=== PATIENT | female | born 1995 | race Caucasian/White ===

== ENCOUNTER 2017-08-03 17:36 | Emergency (ER) | payer MEDICAID ==
--- NOTE | 2017-08-03 18:36 | ER Document Report ---
ED Extremity Problem, Lower - General Mode of Arrival: Ambulatory Information source: Patient TRAVEL OUTSIDE OF THE [place] 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 Patient states she had similar symptoms with her first born and was told she was borderline pre-eclampsic therefore she thought she should come to the emergency department. Patient also mentions having frequent UTIs with her first due to kidney reflex disease. Patient denies any new nausea or abdominal pain. Patient is . Patient reports taking Zantac and 1 baby aspirin daily. Patient mentions having a job where she is standing most of the day. (JANELL ARAUZ) - Related Data Allergies/Adverse Reactions: acetaminophen [From Tylenol] Allergy (Verified 08/03/17 17:38) red dye Allergy (Verified 08/03/17 17:38) Past Medical History - General Information source: Patient - Social History Smoking Status: Current Every Day Smoker Chew tobacco use (# tins/day): No Frequency of alcohol use: None Drug Abuse: None Family History: Reviewed & Not Pertinent Patient has suicidal ideation: No Patient has homicidal ideation: No - Past Medical History Cardiac Medical History: Reports: Hx Hypertension - preeclampsia Past Surgical History: Reports: Hx Cholecystectomy, Hx Kidney (Renal Surgery) - spurs removed, Hx Tonsillectomy <JANELL ARAUZ - Last Filed: 08/04/17 03:42> Review of Systems - Review of Systems Constitutional: See HPI, Chills, Diaphoresis EENT: No symptoms reported Cardiovascular: No symptoms reported Respiratory: No symptoms reported Gastrointestinal: No symptoms reported Genitourinary: See HPI, Burning, Frequency Female Genitourinary: No symptoms reported Musculoskeletal: See HPI, Back pain, Leg swelling Skin: No symptoms reported Hematologic/Lymphatic: No symptoms reported Neurological/Psychological: No symptoms reported -: Yes All other systems reviewed and negative <JANELL ARAUZ - Last Filed: 08/04/17 03:42> Physical Exam <JANELL ARAUZ - Last Filed: 08/04/17 03:42> <GUNNER PRASAD - Last Filed: 08/04/17 03:43> - Vital signs Vitals: Temp Pulse Resp BP Pulse Ox 99.5 F 98 18 124/71 99 08/03/17 17:53 08/03/17 17:53 08/03/17 17:53 08/03/17 17:53 08/03/17 17:53 - Notes Notes: GENERAL: Alert, interacts well. No acute distress. HEAD: Normocephalic, atraumatic. EYES: Pupils equal, round, and reactive to light. Extraocular movements intact. ENT: Oral mucosa moist, tongue midline. NECK: Full range of motion. Supple. Trachea midline. LUNGS: Clear to auscultation bilaterally, no wheezes, rales, or rhonchi. No respiratory distress. HEART: Regular rate and rhythm. No murmurs, gallops, or rubs. ABDOMEN: Soft, non-tender. Gravid, consistent with dates. Bowel sounds present in all 4 quadrants. EXTREMITIES: Moves all 4 extremities spontaneously. 1+ pitting edema bilaterally , equal swelling, radial and dorsalis pedis pulses 2/4 bilaterally. No cyanosis. NEUROLOGICAL: Alert and oriented x3. Normal speech. Biceps and patellar reflexes slowly diminished, 1+ bilaterally. PSYCH: Normal affect, normal mood. SKIN: Warm, dry, normal turgor. No rashes or lesions noted. BACK: No CVA tenderness to percussion. Right SI joint and right PSIS joint tender to palpation. (REGLAMACRINAFAHAD) Course - Laboratory Result Diagrams: 08/03/17 19:15 08/03/17 18:50 <JANELL ARAUZ - Last Filed: 08/04/17 03:42> - Laboratory Result Diagrams: 08/03/17 19:15 08/03/17 18:50 <GUNNER PRASAD - Last Filed: 08/04/17 03:43> - Re-evaluation Re-evalutation: 08/03/17 21:00 CBC shows leukocytosis white count of 11.4, mild anemia consistent with of 11.7, chemistries do not show any elevation in LFTs, no suspicion for preeclampsia at this time, again no protein in the urine points away from preeclampsia as does a normal blood pressure and slightly decreased patellar and biceps deep tendon reflexes, urinalysis shows small blood on dipstick but only 1 WBC and 1 RBC. No evidence of urinary tract infection. Discussed with patient that the leg swelling is likely physiologic related to , there is no asymmetry, no suspicion for DVT. Encouraged patient to walk, use compression stockings, elevate her legs when possible and to quit smoking to decrease the risk of a DVT. Back pain with tenderness along the PSIS and the SI joint on the right is consistent with sacroiliitis from , no evidence of infection at this time. Instructed patient on stretches. (GUNNER PRASAD) - Vital Signs Vital signs: Temp Pulse Resp BP Pulse Ox 99.1 F 95 19 120/79 100 08/03/17 21:07 08/03/17 21:07 08/03/17 21:07 08/03/17 21:07 08/03/17 21:07 - Laboratory Laboratory results interpreted by me: 08/03/17 08/03/17 08/03/17 18:34 18:50 19:15 WBC 11.4 H RBC 3.59 L Hgb 11.7 L Hct 33.2 L Chloride 109 H Carbon Dioxide 21 L Creatinine 0.43 L Total Protein 6.2 L Urine Blood SMALL H Discharge <JANELL ARAUZ - Last Filed: 08/04/17 03:42> <GUNNER PRASAD - Last Filed: 08/04/17 03:43> - Discharge Clinical Impression: Edema during in second trimester, Second trimester , Sacroiliitis Condition: Stable Disposition: HOME, SELF-CARE Additional Instructions: Please wear compression stockings, walk to help mobilize the fluid, drink plenty of water, put your feet up when possible. Use the stretches that I showed you to help relieve some of the pain in your back. If you should develop pain radiating down your legs, headaches or asymmetric swelling please return to the emergency department. Referrals: [facility] STARKS MD [ACTIVE STAFF] - Follow up as needed Scribe Attestation: 08/04/17 03:43 I personally performed the services described in the documentation, reviewed and edited the documentation which was dictated to the scribe in my presence, and it accurately records my words and actions. (GUNNER PRASAD) Scribe Documentation - Scribe Written by Rebeca:: Rebeca Xavier, 08/03/2017 18:48 acting as scribe for :: Sanchez <JANELL ARAUZ - Last Filed: 08/04/17 03:42>
[2017-08-03 19:19] LABS: APPEARANCE,URINE CLEAR; BILIRUBIN,URINE NEGATIVE (NEGATIVE); COLOR,URINE STRAW; GLUCOSE, URINE NEGATIVE (NEGATIVE); KETONES,URINE NEGATIVE (NEGATIVE); LEUKOCYTE ESTERASE,URINE NEGATIVE (NEGATIVE); NITRITE,URINE NEGATIVE (NEGATIVE); PROTEIN,URINE NEGATIVE (NEGATIVE); URINE SPECIFIC GRAVITY 1.006; UROBILINOGEN,URINE NEGATIVE mg/dL (<2.0)
[2017-08-03 19:27] LABS: ALANINE AMINOTRANSFERASE 44 U/L (9-52); ALBUMIN 3.6 g/dL (3.5-5.0); ALKALINE PHOSPHATASE 70 U/L (38-126); ANION GAP 9 (5-19); ASPARTATE AMINO TRANSFERASE 27 U/L (14-36); BILIRUBIN,DIRECT 0.2 mg/dL (0.0-0.4); BILIRUBIN,TOTAL 0.3 mg/dL (0.2-1.3); BLOOD UREA NITROGEN 10 mg/dL (7-20); CALCIUM 9.7 mg/dL (8.4-10.2); CARBON DIOXIDE 21 mmol/L (22-30); CHLORIDE 109 mmol/L (98-107); GLUCOSE 88 mg/dL (75-110); POTASSIUM 4.1 mmol/L (3.6-5.0); SODIUM 139.3 mmol/L (137-145); TOTAL PROTEIN 6.2 g/dL (6.3-8.2)
[2017-08-03 19:36] LABS: ABSOLUTE EOSINOPHILS # (AUTO) 0.1 10^3/uL (0.0-0.6); ABSOLUTE LYMPHOCYTES (AUTO) 2.8 10^3/uL (0.5-4.7); ABSOLUTE MONOCYTES (AUTO) 0.8 10^3/uL (0.1-1.4); ABSOLUTE NEUT (AUTO) 7.6 10^3/uL (1.7-8.2); BASOPHILS % (AUTO) 0.3 % (0-2); EOSINOPHILS % (AUTO) 1.1 % (0-6); HEMATOCRIT 33.2 % (36.0-47.0); HEMOGLOBIN 11.7 g/dL (12.0-15.5); LYMPHOCYTES % (AUTO) 24.4 % (13-45); MEAN CORPUSCULAR HEMOGLOBIN 32.7 pg (27.0-33.4); MEAN CORPUSCULAR HGB CONC 35.3 g/dL (32.0-36.0); MEAN CORPUSCULAR VOLUME 93 fl (80-97); MONOCYTES % (AUTO) 7.1 % (3-13); PLATELET COUNT 241 10^3/uL (150-450); RED BLOOD COUNT 3.59 10^6/uL (3.72-5.28); RED CELL DISTRIBUTION WIDTH 13.1 % (11.5-14.0); SEGMENTED NEUTROPHILS % (AUTO) 67.1 % (42-78); TOTAL CELLS COUNTED % (AUTO) 100 %; WHITE BLOOD COUNT 11.4 10^3/uL (4.0-10.5)
[2017-08-03 21:08] VITALS: BP 120/79
== END 2017-08-03 21:09 | disposition home or self-care (01) ==
LOC: ER 17:36
DX: O12.02 Gestational edema, second trimester (principal); M46.1 Sacroiliitis, not elsewhere classified; R61 Generalized hyperhidrosis; O99.332 Smoking (tobacco) complicating pregnancy, second trimester; Z3A.22 22 weeks gestation of pregnancy; Z90.49 Acquired absence of other specified parts of digestive tract; Z79.82 Long term (current) use of aspirin
CPT/HCPCS: 36415; 80053; 81001; 85025; 99283

== ENCOUNTER 2017-09-28 19:50 | Outpatient (CLI) | payer MEDICAID ==
[2017-09-28 20:35] LABS: APPEARANCE,URINE SLIGHTLY-CLOUDY; BILIRUBIN,URINE NEGATIVE (NEGATIVE); COLOR,URINE YELLOW; GLUCOSE, URINE NEGATIVE (NEGATIVE); KETONES,URINE NEGATIVE (NEGATIVE); LEUKOCYTE ESTERASE,URINE TRACE (NEGATIVE); NITRITE,URINE NEGATIVE (NEGATIVE); PROTEIN,URINE NEGATIVE (NEGATIVE); URINE SPECIFIC GRAVITY 1.019
[2017-09-28 20:54] LABS: URINE AMPHETAMINES SCREEN NEGATIVE; URINE BARBITURATES SCREEN NEGATIVE; URINE BENZODIAZEPINES SCREEN NEGATIVE; URINE COCAINE SCREEN NEGATIVE; URINE MARIJUANA (THC) SCREEN NEGATIVE; URINE METHADONE SCREEN NEGATIVE; URINE PHENCYCLIDINE SCREEN NEGATIVE
== END 2017-09-28 21:21 | disposition home or self-care (01) ==
LOC: LC 19:50
PROVIDERS: ATTEND Student in an Organized Health Care Education/Training Program
PROC: 4A1HXCZ Monitoring of Products of Conception, Cardiac Rate, External Approach (ICD-10-PCS; principal; 2017-09-28)
DX: O26.893 Other specified pregnancy related conditions, third trimester (principal); R10.2 Pelvic and perineal pain; Z3A.31 31 weeks gestation of pregnancy
CPT/HCPCS: 80307; 81001

== ENCOUNTER 2017-10-21 12:36 | Emergency (ER) | payer MEDICAID ==
[2017-10-21 12:59] VITALS: BP 125/76
[2017-10-21] MEDS ORDERED: LIDOCAINE 1% INJ-PF (10 MG/ML) 30 ML SDV INJ ONE (13:10)
[2017-10-21] MEDS ORDERED: CLINDAMYCIN HCL 150 MG CAPSULE PO ONE (13:11)
--- NOTE | 2017-10-21 13:20 | ER Document Report ---
ED Skin Rash/Insect Bite/Abscs - General Chief Complaint: Skin Problem Stated Complaint: RASH Time Seen by Provider: 10/21/17 12:56 Mode of Arrival: Ambulatory Information source: Patient Notes: 22-year-old female presented to ED for complaint of a large abscess to the left upper thigh. She is 35 weeks . TRAVEL OUTSIDE OF THE [place] IN LAST 30 DAYS: No - HPI Patient complains to provider of: Tender/swollen area Onset/Duration: Gradual, Worse Quality of pain: Throbbing Severity: Moderate Pain Level: 3 Skin Character: Abscess Quality of rash: Painful Identify cause: No Exacerbated by: Denies Relieved by: Denies Similar symptoms previously: Yes Recently seen / treated by doctor: Yes - Related Data Allergies/Adverse Reactions: acetaminophen [From Tylenol] Allergy (Verified 09/28/17 20:47) red dye Allergy (Verified 09/28/17 20:47) Past Medical History - General Information source: Patient - Social History Smoking Status: Current Every Day Smoker Cigarette use (# per day): Yes - 4-5 Chew tobacco use (# tins/day): No Smoking Education Provided: Yes - 4 min Frequency of alcohol use: None Drug Abuse: None Lives with: Family Family History: Reviewed & Not Pertinent Patient has suicidal ideation: No Patient has homicidal ideation: No - Past Medical History Cardiac Medical History: Reports: Hx Hypertension - preeclampsia Pulmonary Medical History: Reports: None EENT Medical History: Reports: None Neurological Medical History: Reports: None Endocrine Medical History: Reports: None Renal/ Medical History: Reports: Other - Kidney disease Malignancy Medical History: Reports: None GI Medical History: Reports: Hx Hepatitis Musculoskeletal Medical History: Reports None Skin Medical History: Reports None Psychiatric Medical History: Reports: None Traumatic Medical History: Reports: None Infectious Medical History: Reports: Hx Hepatitis Past Surgical History: Reports: Hx Adenoidectomy, Hx Cholecystectomy, Hx Kidney (Renal Surgery) - spurs removed, Hx Oral Surgery - wisdom teeth, Hx Tonsillectomy - Immunizations Immunizations up to date: Yes Review of Systems - Review of Systems Constitutional: No symptoms reported EENT: No symptoms reported Cardiovascular: No symptoms reported Respiratory: No symptoms reported Gastrointestinal: No symptoms reported Genitourinary: No symptoms reported Female Genitourinary: Musculoskeletal: No symptoms reported Skin: Other - abscess left thigh Hematologic/Lymphatic: No symptoms reported Neurological/Psychological: No symptoms reported -: Yes All other systems reviewed and negative Physical Exam - Vital signs Vitals: Temp Pulse Resp BP Pulse Ox 97.8 F 111 H 16 125/76 98 10/21/17 12:57 10/21/17 12:57 10/21/17 12:57 10/21/17 12:57 10/21/17 12:57 Interpretation: Normal - General General appearance: Appears well, Alert - HEENT Head: Normocephalic, Atraumatic Eyes: Normal Pupils: PERRL - Respiratory Respiratory status: No respiratory distress Chest status: Nontender Breath sounds: Normal Chest palpation: Normal - Cardiovascular Rhythm: Regular Heart sounds: Normal auscultation Murmur: No - Abdominal Inspection: Normal Distension: No distension Bowel sounds: Normal Tenderness: Nontender Organomegaly: No organomegaly - Back Back: Normal, Nontender - Extremities General upper extremity: Normal inspection, Nontender, Normal color, Normal ROM , Normal temperature General lower extremity: Normal inspection, Nontender, Normal color, Normal ROM , Normal temperature, Normal weight bearing. No: Ashley's sign - Neurological Neuro grossly intact: Yes Cognition: Normal Orientation: AAOx4 [place] Coma Scale Eye Opening: Spontaneous [place] Coma Scale Verbal: Oriented [place] Coma Scale Motor: Obeys Commands [place] Coma Scale Total: 15 Speech: Normal Motor strength normal: LUE, RUE, LLE, RLE Sensory: Normal - Psychological Associated symptoms: Normal affect, Normal mood - Skin Skin Temperature: Warm Skin Moisture: Dry Skin Color: Normal Skin irregularity: Abscess Location of irregularity: Other - left thigh Irregularity with: Swelling, Tenderness, Warmth Course - Re-evaluation Re-evalutation: 10/21/17 14:15 Spoke with [facility] christianson before doing I&D due to the patient being 35 weeks . She stated to go ahead and do the I&D and place patient on clindamycin. Patient was treated with clindamycin, her abscess I&D and packed with iodoform, and she was discharged home with instructions to follow-up with the [employer] [employer] on Monday. - Vital Signs Vital signs: Temp Pulse Resp BP Pulse Ox 97.8 F 111 H 16 125/76 98 10/21/17 12:57 10/21/17 12:57 10/21/17 12:57 10/21/17 12:57 10/21/17 12:57 Procedures - Incision and Drainage Left Groin Time completed: 14:06 Type: Simple Anesthetic type: 1% Lidocaine mL's of anesthetic: 6 Blade size: 11 I&D procedure: Other - surgical scrub Incision Method: Incision made by scalpel Amount/type of drainage: purulent large amount drainage Discharge - Discharge Clinical Impression: Abscess of left groin Condition: Stable Disposition: HOME, SELF-CARE Additional Instructions: ABSCESS: You have an abscess (boil). This a pus-forming infection, usually due to staph. Some boils may be left to drain on their own, but most require lancing. From the time the tender lump first appears, it may be three or four days before the abscess is ready to jason. Local heat and rest help at this stage of treatment. An antibiotic may prevent spread of the infection. Once the abscess is opened, packing may be placed into it. This is done so pus is not sealed inside by premature closure of the cavity. The packing will be removed at your follow-up visit or you may be advised to remove it yourself at home. Sometimes this packing must be replaced a few times during healing. The wound will heal with surprisingly little scar. Depending on the size and location of an abscess, healing can take one to four weeks. You may shower and wash the area around the incision site two or three times a day. Antibiotics may be prescribed, but are usually not necessary after an abscess has been drained. If you develop fever, chills, worsening pain, or increasing swelling in the area, call the doctor or return immediately. POST INCISION AND DRAINAGE: You have had an incision made to allow drainage of an abscess. The incision must remain open so that pus and debris can drain from the wound. If the abscess cavity is large, packing is placed. This keeps the tissues from collapsing and trapping pus inside, while the body shrinks the cavity. The packing may need to be replaced every day or two. The physician will instruct you on the packing. Keep a bulky dressing over the area. Replace it if it becomes saturated with blood or pus. Do not disturb the packing (if present). You may shower and cleanse the area with gentle soap and warm water two or three times a day. Local warmth may be soothing, and may promote faster healing. Return if you develop high fever or chills, or if you note spreading redness, increasing swelling, or increasing tenderness. MRSA CELLULITIS: You have an infection of your skin and underlying soft tissues called cellulitis. This is due to bacteria, which can enter through any break in the skin, or even through an irritated hair follicle. Untreated, cellulitis will usually worsen and may form an abscess which requires draining. Although many bacterial organisms can cause cellulitis and abscess formations, the most likely bacteria is Methicillin-Resistant Staph Aureus, or MRSA for short. Antibiotics are required. Usually, warm packs or warm soaks, and elevation of the infected area are recommended. You should start getting better within 24 to 36 hours. Most infections respond quickly to the right medication. Follow-up care is important, however, to check for abscess (boil) formation, unsuspected foreign body, or resistant infection. If you develop fever, chills, or if the area of infection is becoming rapidly more swollen or painful, call the doctor at once. Clindamycin You have been given a prescription for the antibiotic clindamycin. It is often prescribed for infections in the mouth, such as dental infections or abscesses, and for skin infections due to MRSA. It's important that you take all the medication, unless instructed otherwise by your physician. Failure to complete the entire course can result in relapse of your condition. Common side effects of antibiotics include nausea, intestinal cramping, or diarrhea. Women may develop vaginal yeast infections, and babies can get yeast (thrush) in the mouth following the use of antibiotics. Contact your physician if you develop significant side effects from this medication. Allergy to this antibiotic can result in hives, wheezing, faintness, or itching. If symptoms of allergy occur, stop the medication and call the doctor. FOLLOW-UP CARE: Most simple abscesses will not require a follow up visit. If you had packing placed in the abscess, remove it as instructed by the physician. If you have been referred to a physician for follow-up care, call the physicians office for an appointment as you were instructed or within the next two days. If you experience worsening or a significant change in your symptoms, return to the Emergency Department at any time for re-evaluation. Prescriptions: Clindamycin HCl 300 mg PO Q6 #28 capsule Forms: Smoking Cessation Education, Return to Work Referrals: [facility] [Provider Group] - Follow up as needed
== END 2017-10-21 14:22 | disposition home or self-care (01) ==
LOC: ER 12:36
PROC: 0H9JXZZ Drainage of Left Upper Leg Skin, External Approach (ICD-10-PCS; principal; 2017-10-21)
DX: O99.333 Smoking (tobacco) complicating pregnancy, third trimester (principal); O26.893 Other specified pregnancy related conditions, third trimester; L02.416 Cutaneous abscess of left lower limb; R21 Rash and other nonspecific skin eruption; Z3A.35 35 weeks gestation of pregnancy; I10 Essential (primary) hypertension
CPT/HCPCS: 99406; 99283; 87070; 87205; 87075; 87077; 87186; 10060; A6266; J3490 ×2

== ENCOUNTER 2017-12-04 07:48 | Inpatient (IN) | payer MEDICAID ==
[2017-12-04] MEDS ORDERED: RINGERS SOLUTION,LACTATED 1,000 ML IV PRN (08:39)
[2017-12-04] MEDS ORDERED: OXYTOCIN/NORMAL SALINE 20 UNIT/1,000 ML RTUINJ IV PRN (08:43)
[2017-12-04] MEDS ORDERED: LIDOCAINE 1% INJ-PF (10 MG/ML) 30 ML SDV ONE (09:07)
[2017-12-04] MEDS ORDERED: MISOPROSTOL 0.2 MG TABLET ONE (09:07)
[2017-12-04] MEDS ORDERED: OXYTOCIN/NORMAL SALINE 20 UNIT/1,000 ML RTUINJ ONE (09:07)
[2017-12-04 09:28] LABS: APPEARANCE,URINE CLOUDY; BILIRUBIN,URINE NEGATIVE (NEGATIVE); COLOR,URINE YELLOW; GLUCOSE, URINE NEGATIVE (NEGATIVE); KETONES,URINE NEGATIVE (NEGATIVE); LEUKOCYTE ESTERASE,URINE MODERATE (NEGATIVE); NITRITE,URINE NEGATIVE (NEGATIVE); PROTEIN,URINE NEGATIVE (NEGATIVE); URINE SPECIFIC GRAVITY 1.019; UROBILINOGEN,URINE NEGATIVE mg/dL (<2.0)
[2017-12-04 09:44] LABS: URINE AMPHETAMINES SCREEN NEGATIVE; URINE BARBITURATES SCREEN NEGATIVE; URINE BENZODIAZEPINES SCREEN NEGATIVE; URINE COCAINE SCREEN NEGATIVE; URINE MARIJUANA (THC) SCREEN NEGATIVE; URINE METHADONE SCREEN NEGATIVE; URINE PHENCYCLIDINE SCREEN NEGATIVE
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
[2017-12-04 10:21] LABS: ABSOLUTE EOSINOPHILS # (AUTO) 0.1 10^3/uL (0.0-0.6); ABSOLUTE LYMPHOCYTES (AUTO) 1.9 10^3/uL (0.5-4.7); ABSOLUTE MONOCYTES (AUTO) 0.7 10^3/uL (0.1-1.4); ABSOLUTE NEUT (AUTO) 8.3 10^3/uL (1.7-8.2); BASOPHILS % (AUTO) 0.4 % (0-2); EOSINOPHILS % (AUTO) 0.9 % (0-6); HEMATOCRIT 36.7 % (36.0-47.0); LYMPHOCYTES % (AUTO) 17.3 % (13-45); MEAN CORPUSCULAR HEMOGLOBIN 32.9 pg (27.0-33.4); MEAN CORPUSCULAR HGB CONC 35.4 g/dL (32.0-36.0); MEAN CORPUSCULAR VOLUME 93 fl (80-97); MONOCYTES % (AUTO) 6.3 % (3-13); PLATELET COUNT 231 10^3/uL (150-450); RED BLOOD COUNT 3.94 10^6/uL (3.72-5.28); RED CELL DISTRIBUTION WIDTH 13.9 % (11.5-14.0); SEGMENTED NEUTROPHILS % (AUTO) 75.1 % (42-78); TOTAL CELLS COUNTED % (AUTO) 100 %
--- NOTE | 2017-12-04 15:43 | L&D Progress Notes ---
PROGRESS NOTES Datetime Report Generated by [facility]: 12/04/2017 15:43 PROGRESS NOTE Impression Other: IUP @ [id number] Procedures: Sterile Vag Exam Plan: Continue Present Management Informed Consent Obtained: Vaginal Delivery; Induction of Labor; Risks, Benefits and Alternatives Discussed Vital Signs : Reviewed; Within Normal Limits Comment: S: feeling pressure and mild cramping with contractions O:VSS, cervix as stated, BBOW, pit @ 20mu/min A: IUP @ 41w IOL for post term-stable progressing P: continue IOL, reasses as clinically indicated, earlier prn VAGINAL EXAM Dilatation: 4 Effacement: 80 Station: -2 Contractions: 2-4 Contractions: rare MEMBRANES Membranes: Intact Membranes: Intact FETUS A FHR - Baseline: 120 Monitoring: External US Variability: Moderate 6-25bpm Accelerations: 15X15 Decelerations: None FHR Category: Category I FHR Comments: cat II tracing prior to exam with + scalp stimulation Estimated Weight (gm): 3309 Presentation: Vertex SIGNATURE SIGNATURE: [id number] SIGNATURE: [id number] Assignment: Venus Isaacs MD Signature: with User ID: Reny : with User ID: [email or web address]
[2017-12-04] MEDS ORDERED: FENTANYL/BUPIVACAINE/NS/PF 300 MCG/150 ML RTUINJ EPI ONE (17:40)
[2017-12-04] MEDS ORDERED: EPHEDRINE SULFATE INJ 50 MG/1 ML AMPULE ONE (17:40)
[2017-12-04] MEDS ORDERED: BUPIVACAINE HCL 0.5 % INJ/PF 30 ML SDV ONE (17:41)
[2017-12-04] MEDS ORDERED: OXYTOCIN 10 UNIT/ML VIAL ONE (19:18)
--- NOTE | 2017-12-04 22:37 | L&D Progress Notes ---
PROGRESS NOTES Datetime Report Generated by [facility]: 12/04/2017 22:37 PROGRESS NOTE Impression: Normal Progression of Labor Procedures: Artificial ROM Plan: Continue Present Management Informed Consent Obtained: Vaginal Delivery Vital Signs : Reviewed Comment: Minimal fluid return with AROM VAGINAL EXAM Dilatation: 5 Effacement: 80 Station: -2 Contractions: q14 MEMBRANES Membranes: Ruptured Amniotic Fluid Color: Clear FETUS A FHR - Baseline: 130s Variability: Moderate 6-25bpm Accelerations: 10X10 Decelerations: None : 41.0 FETUS C SIGNATURE: [id number] Signature: with User ID: [email or web address]
[2017-12-05] MEDS ORDERED: OXYTOCIN/NORMAL SALINE 20 UNIT/1,000 ML RTUINJ IV PRN (00:31)
[2017-12-05] MEDS ORDERED: BENZOCAINE/MENTHOL AEROSOL SPRAY 56 ML TOP PRN (00:31)
[2017-12-05] MEDS ORDERED: MEASLES,MUMPS&RUBELLA VACC/PF 0.5 ML VIAL SUBCUT PRN (00:31)
[2017-12-05] MEDS ORDERED: DIBUCAINE 1% OINTMENT 28 GM TP PRN (00:31)
[2017-12-05] MEDS ORDERED: DIPH/PERTUSS(ACELL)/TETANUS VAC/PF 0.5 ML SYR (>=10YO) IM PRN (00:31)
[2017-12-05] MEDS ORDERED: ACETAMINOPHEN WITH CODEINE #3 TABLET PO PRN ×4 (00:31→01:49)
[2017-12-05] MEDS ORDERED: ZOLPIDEM TARTRATE 5 MG TABLET PO PRN (00:31)
--- NOTE | 2017-12-05 02:09 | Warning Signs in Babies ---
VOD Warning Signs Datetime Report Generated by [facility]: 12/05/2017 02:09 VOD#608 -Warning Signs in Babies: Viewed with Parent(s)/Family (12/05/2017 02:05:Beatriz Tejada RN)
[2017-12-05] MEDS ORDERED: NICOTINE 21 MG/24 HR PATCH.TD24 TD ONE (03:45)
[2017-12-05] MEDS: IBUPROFEN 800 MG TABLET PO SCH ×3 (05:19→21:04)
--- NOTE | 2017-12-05 09:09 | PDOC PROGRESS REPORT ---
Subjective-OB Progress Note for:: 12/05/17 Subjective: Doing well, no c/o, bottle feeding, needs bra Physical Exam (OB) Vital Signs: Temp Pulse Resp BP Pulse Ox 97.6 F 101 H 15 129/78 H 98 12/05/17 07:52 12/05/17 07:52 12/05/17 07:52 12/05/17 07:52 12/05/17 07:52 Intake & Output 12/04/17 12/05/17 12/06/17 06:59 06:59 06:59 Intake Total 1150 Balance 1150 Weight 119.7 kg - PIH/Pre-Eclampsia Clonus: Negative Headache: Absent Epigastric Pain: No Visual Changes: No - Lochia Lochia Amount: Scant < 10 ml Lochia Color: Rubra/Red - Abdomen Description: Soft, Round Hernia Present: No Fundal Description: Firm, Midline Fundal Height: u/u - u/2 Objective-Diagnostic Laboratory: 12/04/17 09:50 12/04/17 12/04/17 12/04/17 08:00 09:50 09:50 WBC 11.0 H RBC 3.94 Hgb 13.0 Hct 36.7 MCV 93 MCH 32.9 MCHC 35.4 RDW 13.9 Plt Count 231 Seg Neutrophils % 75.1 Lymphocytes % 17.3 Monocytes % 6.3 Eosinophils % 0.9 Basophils % 0.4 Absolute Neutrophils 8.3 H Absolute Lymphocytes 1.9 Absolute Monocytes 0.7 Absolute Eosinophils 0.1 Absolute Basophils 0.0 Urine Color YELLOW Urine Appearance CLOUDY Urine pH 6.0 Ur Specific [place] 1.019 Urine Protein NEGATIVE Urine Glucose (UA) NEGATIVE Urine Ketones NEGATIVE Urine Blood NEGATIVE Urine Nitrite NEGATIVE Ur Leukocyte Esterase MODERATE H Blood Type O POSITIVE Antibody Screen NEGATIVE Assessment and Plan(PN) - Assessment and Plan (1) Post traumatic stress disorder (PTSD) Is this a current diagnosis for this admission?: Yes (2) Personal history of drug abuse Is this a current diagnosis for this admission?: Yes (3) Delivery normal Is this a current diagnosis for this admission?: Yes - Time Spent with Patient Time with patient: Less than 15 minutes Medications reviewed and adjusted accordingly: Yes - Disposition Anticipated Discharge: Home Within: within 48 hours
[2017-12-05] MEDS: FERROUS SULFATE 325 MG TABLET PO SCH ×2 (09:46→17:39)
[2017-12-05] MEDS: PRENATAL VITAMIN W DHA CAPSULE PO SCH (09:46)
[2017-12-05] MEDS: DOCUSATE SODIUM 100 MG CAPSULE PO SCH ×2 (09:46→17:39)
[2017-12-05] MEDS: SENNOSIDES/DOCUSATE 8.6-50 MG 1 EACH TABLET PO SCH (09:46)
[2017-12-05 12:21] LABS: HEMATOCRIT 33.8 % (36.0-47.0); HEMOGLOBIN 11.9 g/dL (12.0-15.5); MEAN CORPUSCULAR HEMOGLOBIN 32.7 pg (27.0-33.4); MEAN CORPUSCULAR HGB CONC 35.2 g/dL (32.0-36.0); MEAN CORPUSCULAR VOLUME 93 fl (80-97); PLATELET COUNT 223 10^3/uL (150-450); RED BLOOD COUNT 3.63 10^6/uL (3.72-5.28); RED CELL DISTRIBUTION WIDTH 13.5 % (11.5-14.0); WHITE BLOOD COUNT 11.4 10^3/uL (4.0-10.5)
[2017-12-06] MEDS: IBUPROFEN 800 MG TABLET PO SCH ×2 (05:37→13:54)
--- NOTE | 2017-12-06 08:34 | Delivery Summary ---
Del Sum A-C Datetime Report Generated by CPN: 12/06/2017 08:33 DELIVERY PERSONNEL DELIVERY PERSONNEL: [id number] Delivery Doctor:: Venus Isaacs MD Labor and Delivery Nurse:: June Jones RN Nursery Nurse:: Do Ybarra RN Family Medicine Physician Assistant/FLAT FINISHER: Kristen Green, ST MATERNAL INFORMATION Delivery Anesthesia: Epidural Medications After Delivery: Pitocin Drip 20 Units/1000ml NSS Estimated Blood Loss (ml): 300 ml Maternal Complications: Other Complication Details: Hepatitis C, Hx of meth and heroin addiction. Provider Comments: of a viable female at 0006 with an SERGEY presentation; APGARS 8@1, 9@5; no lacerations LABOR SUMMARY EDC: 11/27/2017 00:00 No. Babies in Womb: 1 Attempted: No Labor Anesthesia: Epidural LABOR INFORMATION Reason for Induction: Post Dates Onset of Labor: 12/04/2017 15:13 Complete Dilatation: 12/04/2017 23:48 Oxytocin: Induction Group B Beta Strep: Negative Antibiotics # of Doses: 0 Steroids Given: None Reason Steroids Not Administered: Not Applicable MEMBRANES Membranes Rupture Method: Artificial Rupture of Membranes: 12/04/2017 22:31 Length of Rupture (hr): 1.58 Amniotic Fluid Color: Clear Amniotic Fluid Amount: Scant Amniotic Fluid Odor: Normal STAGES OF LABOR Stage 1 hr: 8 Stage 1 min: 35 Stage 2 hr: 0 Stage 2 min: 18 Stage 3 hr: 0 Stage 3 min: 7 Total Time in Labor hr: 9 Total Time in Labor min: 0 VAGINAL DELIVERY Episiotomy: None Laceration #1: None Laceration Extension #1: N/A Laceration Repair: Not Applicable Sponge Count Correct: N/A Sharps Count Correct: N/A CSECTION DELIVERY Primary Indication: N/A Secondary Indication: N/A CSection Incidence: N/A Labor: N/A Elective: N/A CSection Incision: N/A BABY A INFORMATION Delivery Date/Time: 12/05/2017 00:06 Method of Delivery: Vaginal Method of Delivery: Vaginal Born in Route : No : N/A Forceps: N/A Vacuum Extraction: N/A Shoulder Dystocia : No PRESENTATION/POSITION BABY A Presentation: Cephalic Cephalic Presentation: Vertex Vertex Position: Right Occipital Anterior Breech Presentation: N/A PLACENTA INFORMATION BABY A Placenta Delivery Time : 12/05/2017 00:13 Placenta Method of Delivery: Spontaneous Placenta Method of Delivery: Spontaneous Placenta Status: Delivered SCORES BABY A Heart Rate 1 min: >100 bpm Resp Effort 1 min: Good Cry Reflex Irritability 1 min: Cough or Sneeze or Pulls Away Muscle Tone 1 min: Active Motion Color 1 min: Blue/Pale Resuscitation Effort 1 min: Tactile Stimulation SCORE 1 MIN: 8 Heart Rate 5 min: >100 bpm Resp Effort 5 min: Good Cry Reflex Irritability 5 min: Cough or Sneeze or Pulls Away Muscle Tone 5 min: Active Motion Color 5 min: Body [place], Extremities Blue Resuscitation Effort 5 min: Tactile Stimulation SCORE 5 MIN: 9 INFANT INFORMATION BABY A Gestational Age at Delivery: 41.1 Gestational Status: Late Term- 41- 41.6 Weeks Outcome : Liveborn Condition : Stable Sex: Female Sex: Female IDENTIFICATION BABY A Infant Verification Date/Time: 12/05/2017 00:15 ID Band Number: [id number] Mother's Name Verified: Yes RN Verifying Infant: Chalman, A. RN WEIGHT/LENGTH BABY A Infant Birthweight (gm): 3100 Infant Weight (lb): 6 Weight (oz): 13 Infant Length (in): 19.00 Infant Length (cm): 48.26 CORD INFORMATION BABY A No. Cord Vessels: 3 Nuchal Cord : N/A Cord Blood Taken: Yes-For Eval (Mom's Blood Type - or O+) Suction: Mouth; Nose ASSESSMENT BABY A Infant Complications: None Physical Findings at Delivery: Within Normal Limits Infant Respirations: Appears Normal Infant Care By: Juliet Ybarra RN Transferred To: Remains with Mother BABY B INFORMATION : N/A SIGNATURES Signature: with User ID: [email or web address]
[2017-12-06 08:36] VITALS: BP 131/80
[2017-12-06] MEDS: SENNOSIDES/DOCUSATE 8.6-50 MG 1 EACH TABLET PO SCH (09:59)
[2017-12-06] MEDS: PRENATAL VITAMIN W DHA CAPSULE PO SCH (09:59)
[2017-12-06] MEDS: FERROUS SULFATE 325 MG TABLET PO SCH (09:59)
[2017-12-06] MEDS: DOCUSATE SODIUM 100 MG CAPSULE PO SCH (09:59)
--- NOTE | 2017-12-06 10:09 | PDOC PROGRESS REPORT ---
Subjective-OB Progress Note for:: 12/06/17 - PP Day#1, doing well, no compaints, bottlefeeding , O+, rubella equivocal Physical Exam (OB) Vital Signs: Temp Pulse Resp BP Pulse Ox 98.1 F 104 H 16 131/80 H 98 12/06/17 08:15 12/06/17 08:15 12/06/17 08:15 12/06/17 08:15 12/06/17 08:15 Intake & Output 12/05/17 12/06/17 12/07/17 06:59 06:59 06:59 Intake Total 1150 240 Balance 1150 240 Weight 119.7 kg - General General Appearance: Appears well, Alert In distress: None - PIH/Pre-Eclampsia Clonus: Negative Headache: Absent Epigastric Pain: No Visual Changes: No - Lochia Lochia Amount: Scant < 10 ml Lochia Color: Rubra/Red - Abdomen Description: Soft, Round Hernia Present: No Fundal Description: Firm, Midline Fundal Height: u/u - u/2 - HEENT Head: Normocephalic Eyes: Normal - Respiratory Respiratory Status: No respiratory distress - Abdominal Distension: No distension - Genitourinary Genitourinary Note: voiding - Extremities Upper extremity: Normal inspection Lower extremities: Normal inspection - Neurological Cognition: Confused Orientation: AAOx4 - Psychological Associated symptoms: Normal affect, Normal mood - Skin Skin Temperature: Warm Skin Moisture: Dry Objective-Diagnostic Laboratory: 12/05/17 12:12 12/05/17 12/05/17 10:23 12:12 WBC Cancelled 11.4 H RBC Cancelled 3.63 L Hgb Cancelled 11.9 L Hct Cancelled 33.8 L MCV Cancelled 93 MCH Cancelled 32.7 MCHC Cancelled 35.2 RDW Cancelled 13.5 Plt Count Cancelled 223 Assessment and Plan(PN) - Assessment and Plan (1) Delivery normal Is this a current diagnosis for this admission?: Yes (2) Encounter for induction of labor Is this a current diagnosis for this admission?: Yes (3) History of drug abuse Is this a current diagnosis for this admission?: Yes (4) Personal history of drug abuse Is this a current diagnosis for this admission?: Yes (5) Post traumatic stress disorder (PTSD) Is this a current diagnosis for this admission?: Yes (6) Qualifiers: Weeks of gestation: unspecified Qualified Code(s): Z34.90 - Encounter for supervision of normal , unspecified, unspecified trimester Is this a current diagnosis for this admission?: Yes - Time Spent with Patient Time with patient: Less than 15 minutes Medications reviewed and adjusted accordingly: Yes - Disposition Anticipated Discharge: Home Within: within 24 hours
--- NOTE | 2017-12-06 10:37 | PDOC DISCHARGE SUMMARY ---
Final Diagnosis Discharge Date: 12/06/17 - Final Diagnosis (1) Delivery normal Is this a current diagnosis for this admission?: Yes (3) History of drug abuse Is this a current diagnosis for this admission?: Yes (4) Personal history of drug abuse Is this a current diagnosis for this admission?: Yes (5) Post traumatic stress disorder (PTSD) Is this a current diagnosis for this admission?: Yes (6) Is this a current diagnosis for this admission?: Yes Discharge Data - Discharge Medication Prescriptions: Ibuprofen [Motrin 800 mg Tablet] 800 mg PO Q8 #90 tablet Home Medications: Prenat 115/Iron Fum/Folic/Dss [ 19 Tablet] 1 tab PO DAILY 09/28/17 Ranitidine HCl [Zantac] 1 tab PO DAILY 09/28/17 Ibuprofen [Motrin 800 mg Tablet] 800 mg PO Q8 #90 tablet 12/06/17 Reason(s) for Admission: Onset of Labor Procedures: Ultrasound Intrapartum Procedure(s): Spontaneous Vaginal Delivery - Diagnosis Test Laboratory: Temp Pulse Resp BP Pulse Ox 98.1 F 104 H 16 131/80 H 98 12/06/17 08:15 12/06/17 08:15 12/06/17 08:15 12/06/17 08:15 12/06/17 08:15 12/04/17 12/04/17 12/05/17 08:00 09:50 10:23 RBC 3.94 Cancelled Hgb 13.0 Cancelled Hct 36.7 Cancelled Urine Opiates Screen NEGATIVE 12/05/17 12:12 RBC 3.63 L Hgb 11.9 L Hct 33.8 L Urine Opiates Screen - Discharge information/Instructions Discharge Activity: Activity As Tolerated, No Lifting Over 10 Pounds, Pelvic Rest Discharge Diet: As Tolerated, Regular Disposition: HOME, SELF-CARE Follow up with: [facility] in: 4, Weeks
== END 2017-12-06 15:03 | disposition home or self-care (01) | DRG 806 ==
LOC: LR 07:48 → 2S 12-05 02:37
PROVIDERS: ADMIT Obstetrics & Gynecology; ATTEND Obstetrics & Gynecology
PROC: 10907ZC Drainage of Amniotic Fluid, Therapeutic from Products of Conception, Via Natural or Artificial Opening (ICD-10-PCS; 2017-12-04)
PROC: 3E033VJ Introduction of Other Hormone into Peripheral Vein, Percutaneous Approach (ICD-10-PCS; 2017-12-04)
PROC: 4A1HXCZ Monitoring of Products of Conception, Cardiac Rate, External Approach (ICD-10-PCS; 2017-12-04)
PROC: 10E0XZZ Delivery of Products of Conception, External Approach (ICD-10-PCS; principal; 2017-12-05)
PROC: 3E02340 Introduction of Influenza Vaccine into Muscle, Percutaneous Approach (ICD-10-PCS; 2017-12-05)
DX: O48.0 Post-term pregnancy (principal); O98.413 Viral hepatitis complicating pregnancy, third trimester; O99.344 Other mental disorders complicating childbirth; F43.10 Post-traumatic stress disorder, unspecified; B19.20 Unspecified viral hepatitis C without hepatic coma; O99.334 Smoking (tobacco) complicating childbirth; F17.210 Nicotine dependence, cigarettes, uncomplicated; Z88.6 Allergy status to analgesic agent; Z23 Encounter for immunization; Z90.49 Acquired absence of other specified parts of digestive tract; Z3A.41 41 weeks gestation of pregnancy; Z37.0 Single live birth
CPT/HCPCS: 36415; 80307; 81005; 85025; 85027; 86592; 86850; 86900; 86901; 88307; 90471; 90686; 94760; G0008; J2590; J3010; J3490

== ENCOUNTER 2018-05-26 20:50 | Emergency (ER) | payer MEDICAID ==
[2018-05-26] MEDS ORDERED: LIDOCAINE 1% INJ-PF (10 MG/ML) 30 ML SDV INJ ONE (22:37)
[2018-05-26] MEDS ORDERED: DIPH/PERTUSS(ACELL)/TETANUS VAC/PF 0.5 ML SYR (>=10YO) IM ONE (22:37)
--- NOTE | 2018-05-26 22:44 | ER Document Report ---
ED General - General Chief Complaint: Laceration Stated Complaint: LACERATION TO LEFT HAND Time Seen by Provider: 05/26/18 22:25 Mode of Arrival: Ambulatory Information source: Patient TRAVEL OUTSIDE OF THE [place] IN LAST 30 DAYS: No - HPI Patient complains to provider of: Left hand laceration Onset: Just prior to arrival Onset/Duration: Sudden Quality of pain: Sharp Severity: Severe Pain Level: 5 Associated symptoms: None Exacerbated by: Movement Relieved by: Denies Similar symptoms previously: No Recently seen / treated by doctor: No Notes: 22-year-old female coming in today with left hand laceration. Was cutting onions at home with some new knives accidentally sliced her left palm below the knuckle at her index finger. Unknown when her last tetanus shot was - Related Data Allergies/Adverse Reactions: red dye Allergy (Verified 05/26/18 20:52) Vomiting Past Medical History - General Information source: Patient - Social History Smoking Status: Never Smoker Family History: Reviewed & Not Pertinent Patient has suicidal ideation: No Patient has homicidal ideation: No - Past Medical History Cardiac Medical History: Reports: Hx Hypertension - preeclampsia Renal/ Medical History: Denies: Hx Peritoneal Dialysis GI Medical History: Reports: Hx Hepatitis Infectious Medical History: Reports: Hx Hepatitis Past Surgical History: Reports: Hx Adenoidectomy, Hx Cholecystectomy, Hx Kidney (Renal Surgery) - spurs removed, Hx Oral Surgery - wisdom teeth, Hx Tonsillectomy - Immunizations Immunizations up to date: Yes Review of Systems - Review of Systems Notes: Constitutional: No fevers. No chills. EENT: No eye redness. No eye pain. No ear pain. No sore throat. Cardiovascular: No chest pain. No palpitations. Respiratory: No cough. No shortness of breath. No respiratory distress. Gastrointestinal: No abdominal pain. No nausea, vomiting, or diarrhea. Genitourinary: Atraumatic. No lesions. No pain. No discharge. Musculoskeletal: Positive left palm laceration Skin: No rash or lesions. Lymphatic: No swollen lymph nodes. Neurologic: No headache. No syncope. Psychiatric: No suicidal or homicidal ideation. Physical Exam - Vital signs Vitals: Temp Pulse Resp BP Pulse Ox 98.7 F 110 H 20 120/88 H 97 05/26/18 20:50 05/26/18 20:50 05/26/18 20:50 05/26/18 20:50 05/26/18 20:50 - Notes Notes: General: Well-developed, well-nourished. In no acute distress. Non-toxic appearing. Cardiac: Well-perfused. Regular rate and rhythm. No murmurs, rubs, or gallops. Pulmonary: No respiratory distress. No cyanosis. Bilateral lung fiels are clear to auscultation. Abdominal: Non-distended. Non-rigid. Bowels sounds are present in all four quadrants. No guarding or rebound. HEENT: Head is atraumatic. Conjunctivae not reddened. No tearing. PERRL. EOMI. Orbits atraumatic. No periorbital swelling or erythema. Oropharynx is without erythema, swelling, or exudates. Neck: Supple. No adenopathy. No meningismus. Dermatologic: Warm with good turgor. No rash. Atraumatic. Chest: Atraumatic. No chest wall tenderness to palpation. Musculoskeletal: There is a 2-1/2 cm laceration which is in horizontal direction that is on the left palm just below the second MCP joint. There is no active bleeding. Full range of motion in the left index finger Genitourinary: Examination deferred Neurologic: No gross neurologic deficits. Psychiatric: Normal mood. Course - Re-evaluation Re-evalutation: 05/26/18 22:44 We will check an x-ray and also update her tetanus and suture the wound. Patient is having some complaints of sensory decrease in that area. Will refer her to [facility] to have this rechecked once some of the swelling goes down. - Vital Signs Vital signs: Temp Pulse Resp BP Pulse Ox 98.7 F 110 H 20 120/88 H 97 05/26/18 20:50 05/26/18 20:50 05/26/18 20:50 05/26/18 20:50 05/26/18 20:50 Procedures - Laceration/Wound Repair left palm Time completed: 23:46 Wound length (cm): 2.5 Wound's Depth, Shape: Linear Laceration pre-procedure: Sterile PPE donned, Sterile drapes applied, Shur-Clens applied Anesthetic type: 1% Lidocaine Volume Anesthetic (mLs): 5 Wound explored: Clean Wound Repaired With: Sutures Suture Size/Type: 4:0, Ethilon Number of Sutures: 5 Layer Closure?: No Post-procedure wound care: Sterile dressing applied Post-procedure NV exam normal: Yes Complications: No Notes: 05/26/18 23:47 Patient tolerated the procedure well Discharge - Discharge Clinical Impression: Laceration of palm Qualifiers: Encounter type: initial encounter Laterality: left Qualified Code(s): S61.412A - Laceration without foreign body of left hand, initial encounter Condition: Good Disposition: HOME, SELF-CARE Instructions: Antibiotic Ointment Protection (OM), Laceration Care (OM), Soap Cleansing (OM), Tetanus Immunization Given (OM) Additional Instructions: Return to the emergency department in 10 days for suture removal. Referrals: [facility] [Provider Group] - Follow up as needed Print Language: Latvian
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
[2018-05-27 00:10] VITALS: BP 118/76
== END 2018-05-27 00:09 | disposition home or self-care (01) ==
LOC: ER 20:50
DX: S61.412A Laceration without foreign body of left hand, initial encounter (principal); W26.0XXA Contact with knife, initial encounter; Y93.G1 Activity, food preparation and clean up; Y92.000 Kitchen of unspecified non-institutional (private) residence as the place of occurrence of the external cause; Z90.49 Acquired absence of other specified parts of digestive tract; Z23 Encounter for immunization
CPT/HCPCS: 99283; 90471; 73130; 90715; 12001; J3490

== ENCOUNTER → 2018-07-06 | Outpatient (CLI) | payer MEDICAID ==
--- NOTE | 2018-07-06 11:38 | RADIOLOGY REPORT (SQ) ---
EXAM DESCRIPTION: U/S RETROPERITON (RENAL/AORTA) COMPLETED DATE/TIME: 07/06/2018 11:25 am REASON FOR STUDY: HEMATURIA,UNSPECIFIED R31.9 HEMATURIA, UNSPECIFIED COMPARISON: None. TECHNIQUE: Dynamic and static grayscale images acquired of the kidneys and bladder and recorded on P ACS. Additional selected color Doppler and spectral images recorded. LIMITATIONS: None. FINDINGS: RIGHT KIDNEY: Normal size, 12.6 cm in length. Normal echogenicity. No solid or suspicious masses. No hydronephrosis. No calcifications. LEFT KIDNEY: Normal size, 11.9 cm in length. Normal echogenicity. No solid or suspicious masses. No hydronephrosis. No calcifications. BLADDER: No masses. Bilateral ureteral jets are identified OTHER FINDINGS: No other significant finding. IMPRESSION: NORMAL RENAL AND BLADDER ULTRASOUND. TECHNICAL DOCUMENTATION: JOB ID: [id number] [employer]- All Rights Reserved Reading location - IP/workstation name: [email or web address]
== END ==
LOC: RAD 10:56
PROVIDERS: ATTEND Physician Assistant
DX: R31.9 Hematuria, unspecified (principal)
CPT/HCPCS: 76770

== ENCOUNTER 2019-05-29 19:19 | Emergency (ER) | payer SELFPAY ==
[2019-05-29] MEDS ORDERED: HYDROCODONE/ACETAMINOPHEN 5-325 MG (6 TAB/ER DISP) PO PRN (20:24)
--- NOTE | 2019-05-29 20:25 | ER Document Report ---
HPI - HPI Time Seen by Provider: 05/29/19 19:47 Pain Level: 3 Notes: Otherwise healthy 23-year-old female presenting to the emergency department chief complaint of wound recheck. Patient had a pilonidal cyst drained on Monday. She states that she remove the packing on Monday. She reports that this area feels much improved. She continues to take the antibiotics as prescribed. Denies fevers. - CONSTITUTIONAL Constitutional: DENIES: Fever, Chills - REPRODUCTIVE LMP: nexplanon Reproductive: DENIES: : Past Medical History - General Information source: Patient - Social History Smoking Status: Current Every Day Smoker Chew tobacco use (# tins/day): No Frequency of alcohol use: None Drug Abuse: None Family History: Reviewed & Not Pertinent Patient has suicidal ideation: No Patient has homicidal ideation: No - Past Medical History Cardiac Medical History: Reports: Hx Hypertension - preeclampsia Renal/ Medical History: Reports: Hx Kidney Stones GI Medical History: Reports: Hx Hepatitis - c Infectious Medical History: Reports: Hx Hepatitis - c Past Surgical History: Reports: Hx Adenoidectomy, Hx Cholecystectomy, Hx Kidney (Renal Surgery) - spurs removed, Hx TonsillectomyComment Only: Hx Oral Surgery - wisdom teeth - Immunizations Immunizations up to date: Yes Vertical Provider Document - CONSTITUTIONAL Notes: PHYSICAL EXAMINATION: GENERAL: Well-appearing, well-nourished and in no acute distress. HEAD: Atraumatic, normocephalic. EYES: Pupils equal round and reactive to light, extraocular movements intact, conjunctiva are normal. ENT: Nares patent, oropharynx clear without exudates. Moist mucous membranes. NECK: Normal range of motion, supple without lymphadenopathy LUNGS: Breath sounds clear to auscultation bilaterally and equal. No wheezes rales or rhonchi. HEART: Regular rate and rhythm without murmurs ABDOMEN: Soft, nontender, nondistended abdomen. No guarding, no rebound. No masses appreciated. Female : deferred Musculoskeletal: Normal range of motion, no pitting or edema. No cyanosis. NEUROLOGICAL: Cranial nerves grossly intact. Normal speech, normal gait. Normal sensory, motor exams PSYCH: Normal mood, normal affect. SKIN: Healing pilonidal cyst noted to vaginal area. No fluctuance noted. - INFECTION CONTROL TRAVEL OUTSIDE OF THE [place] IN LAST 30 DAYS: No Course - Re-evaluation Re-evalutation: Pilonidal cyst appears to be healing well, patient will continue taking antibiotics and continue sitz baths. ED return precautions discussed. - Vital Signs Vital signs: Temp Pulse Resp BP Pulse Ox 98.9 F 104 H 18 136/75 H 98 05/29/19 19:23 05/29/19 19:23 05/29/19 19:23 05/29/19 19:23 05/29/19 19:23 Discharge - Discharge Clinical Impression: Abscess Condition: Stable Disposition: HOME, SELF-CARE Additional Instructions: Please continue to do sits baths. Take pain medication as prescribed. You may also take ibuprofen 600 mg every 6 hours. You can buy this [id number], if you buy it [id number]-[id number] is 200 mg tablets, take 3 of them every 6 hours. Return to the emergency department any new or worsening symptoms to include worsening pain, increased redness or development of fever. Prescriptions: Hydrocodone/Acetaminophen [Wildrose 5-325 mg Tablet] 1 tab PO Q6H #12 tablet Forms: Return to Work Referrals: LIZANDRO BOBO PA [Primary Care Provider] - Follow up as needed
[2019-05-29 20:31] VITALS: BP 128/72
== END 2019-05-29 20:30 | disposition home or self-care (01) ==
LOC: ER 19:19
DX: L05.01 Pilonidal cyst with abscess (principal); F17.200 Nicotine dependence, unspecified, uncomplicated; Z90.49 Acquired absence of other specified parts of digestive tract; Z86.19 Personal history of other infectious and parasitic diseases
CPT/HCPCS: 99282

== ENCOUNTER 2019-08-09 10:35 | Emergency (ER) | payer OTHER ==
--- NOTE | 2019-08-09 11:27 | RADIOLOGY REPORT (SQ) ---
EXAM DESCRIPTION: CHEST SINGLE VIEW IMAGES COMPLETED DATE/TIME: 08/09/2019 11:18 am REASON FOR STUDY: cough COMPARISON: None. EXAM PARAMETERS: NUMBER OF VIEWS: One view. TECHNIQUE: Single frontal radiographic view of the chest acquired. RADIATION DOSE: NA LIMITATIONS: None. FINDINGS: LUNGS AND PLEURA: No opacities, masses or pneumothorax. No pleural effusion. MEDIASTINUM AND HILAR STRUCTURES: No masses. Contour normal. HEART AND VASCULAR STRUCTURES: Heart normal in size. Normal vasculature. BONES: No acute findings. HARDWARE: None in the chest. OTHER: No other significant finding. IMPRESSION: NO ACUTE RADIOGRAPHIC FINDING IN THE CHEST. TECHNICAL DOCUMENTATION: JOB ID: [id number] 2010 [employer] [facility]- All Rights Reserved Reading location - IP/workstation name: [email or web address]
--- NOTE | 2019-08-09 12:08 | ER Document Report ---
ED Respiratory Problem - General Chief Complaint: Cough Stated Complaint: COUGH Time Seen by Provider: 08/09/19 10:51 Primary Care Provider: GEREMIAS CALDERON MD [Primary Care Provider] - Follow up as needed Mode of Arrival: Ambulatory Information source: Patient Notes: 24-year-old woman presents to the emergency department with a 2-day history of cough. She states that she has been having increasing episodes of coughing over the past 2 days with nonproductive episodes. She is short of breath during the coughing episodes however no history of asthma, COPD or pneumonia in the past. She is a smoker approximately 2 packs/day and works at a [employer], apparently coworker positive for coronavirus recently. She had no direct contact with the individual. She denies fever, body aches and pains, change of appetite or change of smell. TRAVEL OUTSIDE OF THE [place] IN LAST 30 DAYS: No - Related Data Allergies/Adverse Reactions: red dye Allergy (Verified 05/29/19 19:32) Vomiting Past Medical History - Social History Smoking Status: Current Every Day Smoker Chew tobacco use (# tins/day): No Frequency of alcohol use: None Drug Abuse: None Family History: Reviewed & Not Pertinent Patient has homicidal ideation: No - Past Medical History Cardiac Medical History: Reports: Hx Hypertension - preeclampsia Renal/ Medical History: Reports: Hx Kidney Stones GI Medical History: Reports: Hx Hepatitis - c Infectious Medical History: Reports: Hx Hepatitis - c Past Surgical History: Reports: Hx Adenoidectomy, Hx Cholecystectomy, Hx Kidney (Renal Surgery) - spurs removed, Hx TonsillectomyComment Only: Hx Oral Surgery - wisdom teeth - Immunizations Immunizations up to date: Yes Review of Systems - Review of Systems Notes: Constitutional: Negative for fever. HENT: Negative for sore throat. Eyes: Negative for visual changes. Cardiovascular: Negative for chest pain. Respiratory: + Cough Gastrointestinal: Negative for abdominal pain, vomiting or diarrhea. Genitourinary: Negative for dysuria. Musculoskeletal: Negative for back pain. Skin: Negative for rash. Neurological: Negative for headaches, weakness or numbness. 10 point ROS negative except as marked above and in HPI. Physical Exam - Vital signs Vitals: Temp Pulse Resp BP Pulse Ox 98.2 F 84 16 128/72 H 99 08/09/19 10:45 08/09/19 10:45 08/09/19 10:45 08/09/19 10:45 08/09/19 10:45 - Notes Notes: PHYSICAL EXAMINATION: Physical Exam: General: Well-nourished well-developed in no acute distress HEENT: NC/AT, pupils equal round and reactive to light, MM moist,nares clear, oropharynx clear, airway patent Neck: supple, no adenopathy, no masses. Good range of motion Lungs: clear, no wheezing, no rales no rhonchi CVS: Regular rate and rhythm no murmur gallop or rub Abdomen: Soft, active, nontender, no masses, no hepatosplenomegaly Ext: No edema, clubbing or cyanosis. Neuro: Alert and responsive, moving all 4 extremities on command, cranial nerves intact, no focal findings Skin: Intact no open lesions, no rash PSYCH: Normal mood, normal affect. Course - Re-evaluation Re-evalutation: 08/09/19 12:05 Patient presents with cough and strep are negative. 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 I have instructed the patient that she will need to self isolate until she received a report of the test results. The patient acknowledges that she has been tested for COVID-19, and will self isolate at home until she receives results. She is instructed to avoid anti-inflammatory medications. May use Tylenol for fever, aches and pains. She is also instructed to return to the hospital if her symptoms are worsening or development of shortness of breath. - Vital Signs Vital signs: Temp Pulse Resp BP Pulse Ox 98.2 F 84 16 128/72 H 99 08/09/19 11:24 08/09/19 10:45 08/09/19 10:45 08/09/19 10:45 08/09/19 10:45 - Laboratory Laboratory results interpreted by me: 08/09/19 12:04 I have reviewed laboratory data and used this information for the treatment decisions regarding the patient. - Diagnostic Test Radiology reviewed: Image reviewed, Reports reviewed Radiology results interpreted by me: 08/09/19 12:04 Chest x-ray, portable 1 view: No acute cardiopulmonary findings. Discharge - Discharge Clinical Impression: Suspected COVID-19 virus infection, Cough Condition: Good Disposition: HOME, SELF-CARE Additional Instructions: You were seen with fever and upper respiratory symptoms.Testing strep was negative, chest x-ray is clear. Given the pandemic and coronavirus concerns, your were made a person of interest and a swab was collected and will be sent for COVID-19 evaluation. You will need to self quarantine until you get the results. Avoid anti-inflammatory medications, you may use Tylenol for fever, aches and pains. Please return to the hospital if her symptoms are worsening or development of shortness of breath. You are given a prescription for cough medications and a steroid for inflammation. Please continue to cut down on your smoking, monitor the symptoms closely. HOME CARE INSTRUCTIONS & INFORMATION: Thank you for choosing us for your medical needs. We hope you're satisfied with the care you received. After you leave, you must properly care for your problem and, at the same time, observe its progress. Any condition can change. Some illnesses can change rapidly over hours or days. If your condition worsens, return to the Emergency Department or see your physician promptly. ABOUT YOUR X-RAYS AND EKG'S: If you had an EKG or X-rays taken, they have been read by the Emergency Physician. The X-rays and EKG's will also be read by a Radiologist or [facility] Merchant within 24 hours. If discrepancies are noted, you will be notified by telephone. Please be certain the ED has a correct telephone number & address where you can be reached. Also, realize that some fractures or abnormalities do not show up on initial X-rays. If your symptoms continue, see your physician. ABOUT YOUR LABORATORY TEST: If you had laboratory tests, the results have been reviewed by the Emergency Physician. Some test results (for example cultures) may not be available for several days. You will be contacted if any test result shows you need additional treatment. Please be certain the ED has a correct telephone number and address where you can be reached. ABOUT YOUR MEDICATIONS: You will receive instructions on how to take your medicine on the prescription label you receive. Additional information may be provided by the Pharmacy. If you have questions afterwards, call the ED for clarification or further instructions. Some prescribed medications may cause drowsiness. Do not perform tasks such as driving a car or operating machinery without consulting your Pharmacist. If you feel you need a refill of pain medication, your condition will need re-evaluation. Please do not call for a refill of any medication. ABOUT YOUR SIGNATURE: Signature of this document acknowledges to followin. Understanding that you received emergency treatment and that you may be released before al medical problems are known or treated. Please be certain the ED has a correct phone number & address where you can be reached. 2. Acknowledgement that you will arrange for follow-up care as recommended. 3. Authorization for the Emergency Physician to provide information to your follow-up Physician in order to maximize your care. AT ANY TIME, IF YOUR SYMPTOMS CHANGE SIGNIFICANTLY OR WORSEN OR YOU DEVELOP NEW SYMPTOMS, RETURN TO THE EMERGENCY DEPARTMENT IMMEDIATELY FOR RE-EVALUATION. OUR GOAL IS TO PROVIDE EXCELLENT MEDICAL CARE! WE HOPE THAT WE HAVE MET YOUR EXPECTATIONS DURING YOUR EMERGENCY DEPARTMENT VISIT AND THAT YOU FEEL YOU HAVE RECEIVED EXCELLENT CARE! Prescriptions: Dexamethasone [Decadron 4 mg Tablet] 4 mg PO BID #10 tablet Promethazine/Dextromethorphan [Promethazine-Dm Syrup] 5 ml PO Q6 PRN #[id number] syrup PRN Reason: Cough Referrals: GEREMIAS CALDERON MD [Primary Care Provider] - Follow up as needed
[2019-08-09 12:32] VITALS: BP 149/81
== END 2019-08-09 12:32 | disposition home or self-care (01) ==
LOC: ER 10:35
DX: Z20.828 Contact with and (suspected) exposure to other viral communicable diseases (principal); R05 Cough; F17.200 Nicotine dependence, unspecified, uncomplicated; I10 Essential (primary) hypertension
CPT/HCPCS: 99283; 36415; 87070; 87880; 87635; 71045; C9803